=== PATIENT | male | born 1975 | race Caucasian/White ===

== ENCOUNTER → 2024-04-03 07:16 | Outpatient (REF) | payer BC, SELFPAY | LOC: MRI 07:16 | PROVIDERS: ATTENDING PHYSICIAN Physician Assistant Surgical; FAMILY PHYSICIAN Internal Medicine | DX: M43.16 Spondylolisthesis, lumbar region (principal); M51.36 Other intervertebral disc degeneration, lumbar region; M54.50 Low back pain, unspecified | CPT/HCPCS: 72148 ==